=== PATIENT | female | born 1965 | race Two or more races ===

== ENCOUNTER → 2024-11-04 | Outpatient (CLI) | payer MEDICARE, MEDICAID, SELFPAY ==
--- NOTE | 2024-11-04 13:48 | XR_ITS ---
Examination: Venous duplex lower extremity sonogram, bilateral. Date and time of exam: November 04, 2024 1403 hours INDICATIONS: Bilateral ankle swelling and pain beginning one week ago Technique: Multiple sonographic images of the deep venous system have been obtained. B-mode/2-D grayscale imaging of vascular structures and Doppler spectral analysis (waveforms) and color performed Both legs are examined. Findings: Deep venous systems do not demonstrate abnormal echogenicity. All visualized deep veins exhibit compressibility. All visualized deep veins exhibit augmentation. Impression: Negative for deep vein thrombosis
== END | disposition home or self-care (01) ==
PROVIDERS: PCP Family Medicine; Referring Provider Student in an Organized Health Care Education/Training Program; Visit Provider Student in an Organized Health Care Education/Training Program
DX: R60.9 Edema, unspecified (principal)
CPT/HCPCS: 93970

== ENCOUNTER 2024-11-08 09:12 | Emergency (ER) | payer MEDICARE, SELFPAY ==
[2024-11-08 09:28] VITALS: BP 140/64; PULSE 89; RESP 18; TEMP 36.4; O2SAT 97; BMI 28.1
--- NOTE | 2024-11-08 09:47 | XR_ITS ---
Examination: Venous duplex lower extremity sonogram, bilateral. Date and time of exam: November 08, 2024 1102 hours INDICATIONS: Bilateral leg swelling and pain beginning 2 weeks ago Technique: Multiple sonographic images of the deep venous system have been obtained. B-mode/2-D grayscale imaging of vascular structures and Doppler spectral analysis (waveforms) and color performed Both legs are examined. Findings: Deep venous systems do not demonstrate abnormal echogenicity. All visualized deep veins exhibit compressibility. All visualized deep veins exhibit augmentation. Impression: Negative for deep vein thrombosis
--- NOTE | 2024-11-08 09:49 | PD.EDRME ---
Rapid Medical Screening Exam RME Arrival date/time: 11/08/24 09:12 This is a 59-year-old female that comes in with complaints of lower extremity pain along with edema. Patient states that she was seen by her primary provider previously and was given a Toradol shot for pain. Patient states that her leg pain is getting worse and the swelling was getting worse. Patient decided to come to the emergency room. Patient has a history of high blood pressure, chronic kidney disease, and anxiety. Patient has a history of seizures as well. I have greeted and performed a focused initial assessment of this patient. Initial appropriate labs ordered at this time. A comprehensive ED assessment and evaluation of the patient and analysis of all test and completion of medical decision making process will be conducted by additional ED provider. Chief Complaint: General Adult/Misc Complain Time Seen by Provider: 11/08/24 09:13 Vital signs: Vital Signs Temperature 97.6 F 11/08/24 09:28 Pulse Rate 89 11/08/24 09:28 Respiratory Rate 18 11/08/24 09:28 Blood Pressure 140/64 H 11/08/24 09:28 Pulse Oximetry (%) 97 11/08/24 09:28 Oxygen Delivery Method Room Air 11/08/24 09:28
[2024-11-08 10:12] LABS: Basophils # (Auto) 0.1 Thou/mm3 (0.0-0.2); Basophils % (Auto) 1 % (0-2.5); Eosinophils # (Auto) 0.3 Thou/mm3 (0.0-0.5); Eosinophils % (Auto) 4 % (0-10); Hematocrit 34.4 % (36.0-46.0); Hemoglobin 11.8 g/dL (12.0-16.0); Immature Granulocytes % (Auto) 0 % (0-0); Immature Granulocytes Auto 0.02 Thou/mm3 (0.00-0.00); Lymphocytes # (Auto) 1.7 Thou/mm3 (1.0-4.8); Lymphocytes % (Auto) 29 % (10-50); Mean Corpuscular HGB Conc 34.3 g/dl (31.0-37.0); Mean Corpuscular Hemoglobin 30.5 pg (25.0-35.0); Mean Corpuscular Volume 89 fL (80-100); Monocytes # (Auto) 0.6 Thou/mm3 (0.0-0.8); Monocytes % (Auto) 10 % (0-12); Neutrophils # (Auto) 3.2 Thou/mm3 (1.8-7.7); Neutrophils % (Auto) 55 % (37-80); Nucleated Red Blood Cell % 0 /100 WBC (0); Platelet Count 229 Thou/mm3 (140-440); RDW Standard Deviation 43.8 fL (36.4-46.3); Red Blood Count 3.87 Miln/mm3 (4.00-5.20); White Blood Count 5.9 Thou/mm3 (3.6-11.0)
[2024-11-08 10:28] LABS: Prothrombin Time 10.7 Seconds (9.0-12.2)
[2024-11-08 10:33] LABS: Collection Type, Urine Voided
[2024-11-08 10:33] LABS: B-Type Natriuretic Peptide 24 pg/mL (0-100)
[2024-11-08 10:34] LABS: Alanine Aminotransferase 33 U/L (10-49); Albumin, Serum 4.8 gm/dL (3.4-4.8); Albumin/Globulin Ratio 1.7 (1.2-2.2); Alkaline Phosphatase 95 U/L (46-116); Anion Gap 14 (7-16); Aspartate Amino Transferase 42 U/L (0-34); BUN/Creatinine Ratio 15 Ratio (12-20); Bilirubin,Total 0.4 mg/dL (0.3-1.2); Blood Urea Nitrogen 16 mg/dL (9-23); Calcium 8.9 mg/dL (8.3-10.6); Calcium (Corrected) 8.9 mg/dL (8.5-10.1); Chloride 107 mMol/L (98-107); Creatinine (Component) 1.1 mg/dL (0.6-1.3); Estimated Creatinine Clearance 43.4 mL/min (>60); Globulin 2.9 gm/dL (2.3-3.5); Glucose 101 mg/dL (74-106); Osmolality,Calculated 284 (275-295); Potassium 4.2 mMol/L (3.4-5.1); Sodium 142 mMol/L (136-145); Total Protein 7.7 gm/dL (5.7-8.2); eGFR 57 See Note
[2024-11-08 11:20] LABS: Bilirubin,Urine Negative (Negative); Blood,Urine 1+ (Negative); Color,Urine Lt-Yellow (Lt Yel-Yel); Glucose, Urine Negative (Negative); Hyaline Casts,Urine < 1 /hpf (0-1); Ketones,Urine Negative (Negative); Leukocyte Esterase,Urine Positive (Negative); Nitrite,Urine Negative (Negative); PH,Urine 5.5 (5.0-7.0); Protein,Urine Negative (Neg - Trace); RBC,Urine 7 /hpf (0-3); Specific Gravity,Urine 1.021 (1.001-1.035); Squamous Epithelial Cell,Urine 6 /hpf (0-5); Urobilinogen,Urine Negative mg/dL (0.0-1.0); WBC,Urine 11 /hpf (0-5)
[2024-11-08 11:50] LABS: Clarity,Urine Hazy (Clear/Hazy); Culture Indicated,Urine Yes
[2024-11-08 13:05] VITALS: BP 109/76; PULSE 88; RESP 20; TEMP 36.3; O2SAT 98
--- NOTE | 2024-11-08 13:52 | EDNOTE_ITS ---
<Statement entered by Demi Villeda MD - 11/09/24 09:01> As co-signing physician, I was present and available for consult prn. I concur with the plan and care as documented by the midlevel provider. ED General RME/HPI General Chief complaint: General Adult/Misc Complain Stated complaint: SWOLLEN FEET Time Seen by Provider: 11/08/24 09:13 Arrival date/time: 11/08/24 09:12 Bilateral lower extremity edema. Ongoing approximately 2 weeks. Patient denies shortness of breath difficulty breathing headache or chest pain. RME / HPI RME / HPI narrative: 11/08/24 09:12 This is a 59-year-old female that comes in with complaints of lower extremity pain along with edema. Patient states that she was seen by her primary provider previously and was given a Toradol shot for pain. Patient states that her leg pain is getting worse and the swelling was getting worse. Patient decided to come to the emergency room. Patient has a history of high blood pressure, chronic kidney disease, and anxiety. Patient has a history of seizures as well. I have greeted and performed a focused initial assessment of this patient. Initial appropriate labs ordered at this time. A comprehensive ED assessment and evaluation of the patient and analysis of all test and completion of medical decision making process will be conducted by additional ED provider. Related Data Home Medications ?Medication ?Instructions ?Recorded ?Confirmed benazepril 5 mg tablet 15 mg PO QDAY 02/21/1802/16 buspirone 15 mg tablet 15 mg PO QDAY 11/09/1802/16 phenytoin sodium extended 100 mg 100 mg PO TID 9 02/16/19 capsule (Dilantin Extended) Previous Rx's ?Medication ?Instructions ?Recorded furosemide 20 mg tablet (Lasix) 20 mg PO QAM #3 tabs 0 11/08/24 Allergies Allergy/AdvReac Type Severity Reaction Status Date / Time clindamycin Allergy Severe HIVES Verified 11/08/24 09:14 prednisone Allergy Severe Hives Verified 11/08/24 09:14 aspirin AdvReac Severe VOMITING Verified 11/08/24 09:14 Penicillins AdvReac Severe Vomiting Verified 11/08/24 09:14 Review of Systems Review of Systems Narrative Review of Systems: GEN: No fever, no chills, no weight loss EYES: No discharge, no visual changes, no pain HEENT: No ear pain, no congestion, no sore throat PULM: No shortness of breath, no cough, no congestion CV: No chest pain, no dyspnea on exertion, no palpitations GI: No nausea, no vomiting, no diarrhea, no pain, no constipation : No frequency, no urgency, no dysuria MUSC/SKEL: No joint pain, no back pain SKIN: No rash PSYCH: No hallucinations, no depression HEME/LYMPH: No easy bleeding or bruising tendencies NEURO: No weakness, no headache Past Medical History Past Medical History NEUROLOGIC: Positive Transient Ischemic Attacks (TIA) and Seizures CARDIAC: Positive Cardiac Disorders and Hypertension; Negative Congestive Heart Failure RESPIRATORY: Negative Chronic Obstructive Pulmonary Disease (COPD) or Asthma GENITOURINARY: Positive Renal Disease ENDOCRINE: Negative Diabetes Mellitus Type 1 or Diabetes Mellitus Type 2 HEMATOLOGIC: Negative Sickle Cell Disease OTHER HISTORY: Positive Falls Social History SMOKING STATUS: Never smoker ED Exam Narrative Physical exam: [General: Obese not in cot no acute distress Head normocephalic HEENT: Within acceptable limits Neck is supple nontender Chest equal chest rise nontender to palpation Respiratory: Clear to auscultation no wheezes crackles or rubs CV: Rate rhythm is regular no murmurs rubs or clicks Abdomen is distended secondary to body habitus soft nontender no masses positive bowel sounds all 4 quadrants Back: No CVA tenderness no spinous process tenderness from cervical spine thoracic and lumbar spine Skin: Intact no petechiae rash induration ulceration or crepitus Extremities: Moving all extremity against resistance cap refill less than 2 seconds neurosensory intact. Mild pitting edema to the lower extremities below the knee down to the dorsum of the foot. Neuro: Awake alert oriented x3 Glascow coma 15 no focal deficits] Course Quality Measures none Orders Category Date Time Status US venous doppler LE BI Stat Exams 11/08/24 09:47 Completed BNP [B-Type Natriuretic Peptide] Stat Lab 11/08/24 09:55 Completed CBC Stat Lab 11/08/24 09:55 Completed Comprehensive Metabolic Panel Stat Lab 11/08/24 09:55 Completed PT [Prothrombin Time with INR] Stat Lab 11/08/24 09:55 Completed Urinalysis, C/S if Indicated Stat Lab 11/08/24 10:22 Completed Urine Culture Stat Lab 11/08/24 10:22 Received Furosemide [Lasix] Med 11/08/24 13:52 Once 20 mg PO X1 ONE Vital Signs Vital signs: Vital Signs Temperature 97.6 F 11/08/24 09:28 Pulse Rate 89 11/08/24 09:28 Respiratory Rate 18 11/08/24 09:28 Blood Pressure 140/64 H 11/08/24 09:28 Pulse Oximetry (%) 97 11/08/24 09:28 Oxygen Delivery Method Room Air 11/08/24 09:28 Discharge Plan Plan Patient Disposition: HOME (Self Care) Patient condition on transfer: Stable Prescriptions/Referrals Prescriptions/Med Rec: New furosemide [Lasix] 20 mg tablet 20 mg PO QAM Qty: 3 0RF No Action benazepril 5 mg Tablet 15 mg PO QDAY phenytoin sodium extended [Dilantin Extended] 100 mg Capsule 100 mg PO TID buspirone 15 mg Tablet 15 mg PO QDAY Referrals: Billy Duong MD [Physician] - In 1 week No Primary/Family,Physician [Primary Care Provider] - In 1 week Problem List Clinical Impression: Edema of lower extremity Patient/Caregiver Discharge Instructions Education Materials: ED Leg Swelling in Both Legs Additional Instructions: Take the medication as prescribed and follow-up with your primary care provider. Print Language: French Stand Alone Forms: Elisabeth Award Info., Patient Portal Info Letter, Work/School Release PA/DOUG Supervising Physician PA/DOUG Supervising Physician: Yahir Cota ENP [facility] Clinical Information Provided by: patient Medical Records reviewed [facility] Meds/Rx considered, not ordered None Labs/Rad/Tests considered, not ordered None EKG EKG not done Labs Labs: Interpreted by id Lab(s) Interpretation(s): CBC shows no acute leukocytosis mild anemia of 11.8 and 34.4 respectively. No thrombocytopenia CMP shows no significant electrolyte imbalances renal impairment transaminitis or T. bili elevation Urine is negative Medication Administration(s) Medication Administration History Furosemide (Furosemide 20 Mg Tablet) 20 mg PO X1 ONE Stop: 11/08/24 13:53
[2024-11-08 14:08] VITALS: BP 133/77; PULSE 73
[2024-11-08] MEDS: Furosemide 20 MG TABLET PO (14:08)
[2024-11-08 14:12] VITALS: BP 133/77; PULSE 73; RESP 18
== END 2024-11-08 14:10 | disposition home or self-care (01) ==
PROVIDERS: Nurse Practitioner Family; Emergency Provider Emergency Medicine
DX: R60.0 Localized edema (principal); N18.9 Chronic kidney disease, unspecified; F41.9 Anxiety disorder, unspecified
CPT/HCPCS: 36415; 80053; 81001; 83880; 85025; 85610; 87086; 93970; 99284; A9270

== ENCOUNTER → 2024-12-05 | Outpatient (CLI) | payer MEDICARE, MEDICAID, SELFPAY ==
--- NOTE | 2024-12-05 09:11 | XR_ITS ---
Examination: PA lateral chest 2 views TECHNIQUE: Upright PA lateral chest 2 views Date and time: December 05, 2024 0926 hours INDICATIONS: Coughing shortness of breath beginning 2 weeks ago. FINDINGS: Normal heart size Lungs are clear. The osseous structures are intact IMPRESSION: No active disease
[2024-12-05 10:19] LABS: Basophils # (Auto) 0.1 Thou/mm3 (0.0-0.2); Basophils % (Auto) 1 % (0-2.5); Eosinophils # (Auto) 0.4 Thou/mm3 (0.0-0.5); Eosinophils % (Auto) 6 % (0-10); Hematocrit 36.4 % (36.0-46.0); Hemoglobin 11.8 g/dL (12.0-16.0); Immature Granulocytes % (Auto) 0 % (0-0); Immature Granulocytes Auto 0.02 Thou/mm3 (0.00-0.00); Lymphocytes # (Auto) 1.9 Thou/mm3 (1.0-4.8); Lymphocytes % (Auto) 33 % (10-50); Mean Corpuscular HGB Conc 32.4 g/dl (31.0-37.0); Mean Corpuscular Hemoglobin 29.7 pg (25.0-35.0); Mean Corpuscular Volume 92 fL (80-100); Monocytes # (Auto) 0.6 Thou/mm3 (0.0-0.8); Monocytes % (Auto) 10 % (0-12); Neutrophils # (Auto) 2.8 Thou/mm3 (1.8-7.7); Neutrophils % (Auto) 49 % (37-80); Nucleated Red Blood Cell % 0 /100 WBC (0); Platelet Count 266 Thou/mm3 (140-440); RDW Standard Deviation 45.1 fL (36.4-46.3); Red Blood Count 3.97 Miln/mm3 (4.00-5.20); White Blood Count 5.7 Thou/mm3 (3.6-11.0)
[2024-12-05 10:34] LABS: B-Type Natriuretic Peptide < 20 pg/mL (0-100)
[2024-12-05 10:37] LABS: Alanine Aminotransferase 23 U/L (10-49); Albumin, Serum 4.6 gm/dL (3.4-4.8); Albumin/Globulin Ratio 1.8 (1.2-2.2); Alkaline Phosphatase 99 U/L (46-116); Anion Gap 11 (7-16); BUN/Creatinine Ratio 21 Ratio (12-20); Bilirubin,Total 0.3 mg/dL (0.3-1.2); Blood Urea Nitrogen 27 mg/dL (9-23); Calcium 9.3 mg/dL (8.3-10.6); Calcium (Corrected) 9.3 mg/dL (8.5-10.1); Carbon Dioxide 27.5 mMol/L (20.0-31.0); Chloride 100 mMol/L (98-107); Creatinine (Component) 1.3 mg/dL (0.6-1.3); Globulin 2.5 gm/dL (2.3-3.5); Glucose 100 mg/dL (74-106); Osmolality,Calculated 280 (275-295); Potassium 4.1 mMol/L (3.4-5.1); Sodium 138 mMol/L (136-145); Total Protein 7.1 gm/dL (5.7-8.2); eGFR 47 See Note
== END | disposition home or self-care (01) ==
LOC: CDIM 09:05 → COPL 09:41
PROVIDERS: PCP Student in an Organized Health Care Education/Training Program; Referring Provider Student in an Organized Health Care Education/Training Program; Visit Provider Radiology Diagnostic Radiology
DX: R06.02 Shortness of breath (principal); N18.9 Chronic kidney disease, unspecified
CPT/HCPCS: 36415; 71046; 80053; 83880; 85025

== ENCOUNTER → 2025-02-07 | Outpatient (CLI) | payer MEDICARE, MEDICAID, SELFPAY ==
--- NOTE | 2025-02-07 09:44 | XR_ITS ---
Examination: Foot, left, 3 views Technique: AP, oblique, lateral views foot, 3 views Date and time of exam: February 07, 2025 1041 hours INDICATIONS: Injury to left foot February 03, 2025 with foot pain FINDINGS: Moderate osteopenia No acute fracture Mild bunion deformity IMPRESSION: No acute fracture
== END | disposition home or self-care (01) ==
LOC: CDIM 09:13
PROVIDERS: PCP Student in an Organized Health Care Education/Training Program; Referring Provider Student in an Organized Health Care Education/Training Program; Visit Provider Student in an Organized Health Care Education/Training Program
DX: S99.922A Unspecified injury of left foot, initial encounter (principal); X58.XXXA Exposure to other specified factors, initial encounter
CPT/HCPCS: 73630

== ENCOUNTER → 2025-03-09 | Outpatient (CLI) | payer MEDICARE, MEDICAID, SELFPAY ==
--- NOTE | 2025-03-09 09:19 | XR_ITS ---
Examination: Foot, right, 3 views Technique: AP, oblique, lateral views foot, 3 views Date and time of exam: June 08, 2025 0952 hours INDICATIONS: Right flank pain beginning 2 weeks ago. FINDINGS: No acute fracture No dislocation No foreign body No cortical bone destruction IMPRESSION: No fracture. No cortical bone destruction
[2025-03-09 11:10] LABS: Basophils # (Auto) 0.1 Thou/mm3 (0.0-0.2); Basophils % (Auto) 1 % (0-2.5); Eosinophils # (Auto) 0.3 Thou/mm3 (0.0-0.5); Eosinophils % (Auto) 7 % (0-10); Hematocrit 35.7 % (36.0-46.0); Hemoglobin 11.7 g/dL (12.0-16.0); Immature Granulocytes Auto 0.01 Thou/mm3 (0.00-0.00); Lymphocytes # (Auto) 1.6 Thou/mm3 (1.0-4.8); Lymphocytes % (Auto) 34 % (10-50); Mean Corpuscular HGB Conc 32.8 g/dl (31.0-37.0); Mean Corpuscular Hemoglobin 29.8 pg (25.0-35.0); Mean Corpuscular Volume 91 fL (80-100); Monocytes # (Auto) 0.5 Thou/mm3 (0.0-0.8); Monocytes % (Auto) 12 % (0-12); Neutrophils # (Auto) 2.2 Thou/mm3 (1.8-7.7); Neutrophils % (Auto) 47 % (37-80); Nucleated Red Blood Cell # 0.00 Thou/mm3 (0.00-0.00); Nucleated Red Blood Cell % 0 /100 WBC (0); Platelet Count 184 Thou/mm3 (140-440); RDW Standard Deviation 49.1 fL (36.4-46.3); Red Blood Count 3.93 Miln/mm3 (4.00-5.20); White Blood Count 4.7 Thou/mm3 (3.6-11.0)
[2025-03-09 11:24] LABS: Glucose Estimated Average 120 mg/dL (80-131); Hemoglobin A1C 5.8 % Hgb (4.8-6.0)
[2025-03-09 11:27] LABS: Alanine Aminotransferase 14 U/L (10-49); Albumin, Serum 4.7 gm/dL (3.4-4.8); Albumin/Globulin Ratio 2.0 (1.2-2.2); Alkaline Phosphatase 122 U/L (46-116); Anion Gap 9 (7-16); Aspartate Amino Transferase 20 U/L (0-34); BUN/Creatinine Ratio 19 Ratio (12-20); Bilirubin,Total 0.3 mg/dL (0.3-1.2); Blood Urea Nitrogen 21 mg/dL (9-23); Calcium 9.8 mg/dL (8.3-10.6); Calcium (Corrected) 9.8 mg/dL (8.5-10.1); Carbon Dioxide 29.4 mMol/L (20.0-31.0); Cardiac Risk Estimate 2.3 RATIO (3.7-5.6); Chloride 105 mMol/L (98-107); Cholesterol 202 mg/dL (132-200); Creatinine (Component) 1.1 mg/dL (0.6-1.3); Globulin 2.3 gm/dL (2.3-3.5); Glucose 99 mg/dL (74-106); HDL Cholesterol 86 mg/dL (40-60); LDL Cholesterol,Calculated 100 mg/dL (0-130); Osmolality,Calculated 287 (275-295); Potassium 4.4 mMol/L (3.4-5.1); Sed Rate (ESR) 13 mm/hr (0-30); Sodium 143 mMol/L (136-145); Total Protein 7.0 gm/dL (5.7-8.2); Triglycerides 82 mg/dL (30-150); Uric Acid 7.4 mg/dL (3.1-7.8); eGFR 57 See Note
[2025-03-09 11:38] LABS: Creatinine MALB Rnd Ur 36 mg/dL (30-125); Microalbumin, Random Urine < 3 mg/L (0-300)
[2025-03-09 17:43] LABS: Vitamin D 25 Hydroxy Total 23.3 ng/mL (7.3-40.2)
== END | disposition home or self-care (01) ==
LOC: CDIM 09:01 → COPL 09:43
PROVIDERS: PCP Nurse Practitioner Family; Referring Provider Nurse Practitioner Family; Visit Provider Radiology Diagnostic Radiology
DX: M79.671 Pain in right foot (principal); N18.9 Chronic kidney disease, unspecified; M79.672 Pain in left foot
CPT/HCPCS: 36415; 73630; 80053; 80061; 82043; 82306; 82570; 83036; 84550; 85025; 85652

== ENCOUNTER → 2025-04-12 | Outpatient (CLI) | payer MEDICARE, SELFPAY ==
--- NOTE | 2025-04-12 13:49 | XR_ITS ---
EXAMINATION: AP pelvis left hip 3 views TECHNIQUE: AP pelvis, AP lateral left hip 2 views total 3 views Date and time: April 12, 2025, 1411 hours INDICATIONS: Left hip pain 1 month FINDINGS: Total left hip arthroplasty. The prosthetic acetabular cup protrudes medially into the pelvis stable in appearance compared with November 05, 2023 The intramedullary stem of the hip prosthesis is eccentrically positioned extending slightly into the cortex of the left femoral shaft No fracture IMPRESSION: Stable alignment left total hip arthroplasty, the prosthetic stem is eccentrically positioned relative to the femoral shaft although no fracture
--- NOTE | 2025-04-12 13:49 | XR_ITS ---
EXAMINATION: Left foot 3 views TECHNIQUE: AP oblique lateral left foot 3 views Date and time: April 12, 2025 1407 hours INDICATIONS: Left foot pain beginning 1 month ago. FINDINGS: Mild bunion deformity. Mild narrowing first metatarsophalangeal joint No fracture. No erosive or other significant arthritic change IMPRESSION: Mild bunion deformity Mild narrowing first metatarsophalangeal joint
== END | disposition home or self-care (01) ==
PROVIDERS: PCP Internal Medicine
DX: M21.612 Bunion of left foot (principal); M25.872 Other specified joint disorders, left ankle and foot; M25.552 Pain in left hip; Z96.642 Presence of left artificial hip joint
CPT/HCPCS: 73502; 73630

== ENCOUNTER → 2025-05-10 | Outpatient (CLI) | payer MEDICARE, SELFPAY ==
[2025-05-10 09:15] LABS: Basophils # (Auto) 0.1 Thou/mm3 (0.0-0.2); Basophils % (Auto) 1 % (0-2.5); Eosinophils # (Auto) 0.2 Thou/mm3 (0.0-0.5); Eosinophils % (Auto) 4 % (0-10); Hematocrit 37.5 % (36.0-46.0); Hemoglobin 12.3 g/dL (12.0-16.0); Immature Granulocytes Auto 0.02 Thou/mm3 (0.00-0.00); Lymphocytes # (Auto) 1.5 Thou/mm3 (1.0-4.8); Lymphocytes % (Auto) 35 % (10-50); Mean Corpuscular HGB Conc 32.8 g/dl (31.0-37.0); Mean Corpuscular Hemoglobin 30.4 pg (25.0-35.0); Mean Corpuscular Volume 93 fL (80-100); Monocytes # (Auto) 0.5 Thou/mm3 (0.0-0.8); Monocytes % (Auto) 12 % (0-12); Neutrophils # (Auto) 2.1 Thou/mm3 (1.8-7.7); Neutrophils % (Auto) 48 % (37-80); Nucleated Red Blood Cell # 0.00 Thou/mm3 (0.00-0.00); Nucleated Red Blood Cell % 0 /100 WBC (0); Platelet Count 194 Thou/mm3 (140-440); RDW Standard Deviation 46.0 fL (36.4-46.3); Red Blood Count 4.05 Miln/mm3 (4.00-5.20); White Blood Count 4.4 Thou/mm3 (3.6-11.0)
[2025-05-10 09:37] LABS: Glucose Estimated Average 114 mg/dL (80-131); Hemoglobin A1C 5.6 % Hgb (4.8-6.0)
[2025-05-10 09:40] LABS: Alanine Aminotransferase 15 U/L (10-49); Albumin, Serum 4.9 gm/dL (3.4-4.8); Albumin/Globulin Ratio 2.2 (1.2-2.2); Alkaline Phosphatase 94 U/L (46-116); Anion Gap 9 (7-16); Aspartate Amino Transferase 24 U/L (0-34); BUN/Creatinine Ratio 19 Ratio (12-20); Bilirubin,Total 0.4 mg/dL (0.3-1.2); Blood Urea Nitrogen 21 mg/dL (9-23); Calcium 9.2 mg/dL (8.3-10.6); Calcium (Corrected) 9.2 mg/dL (8.5-10.1); Carbon Dioxide 28.9 mMol/L (20.0-31.0); Cardiac Risk Estimate 2.5 RATIO (3.7-5.6); Chloride 105 mMol/L (98-107); Cholesterol 218 mg/dL (132-200); Creatinine (Component) 1.1 mg/dL (0.6-1.3); Globulin 2.2 gm/dL (2.3-3.5); Glucose 98 mg/dL (74-106); HDL Cholesterol 88 mg/dL (40-60); LDL Cholesterol,Calculated 123 mg/dL (0-130); Osmolality,Calculated 287 (275-295); Potassium 4.3 mMol/L (3.4-5.1); Sodium 143 mMol/L (136-145); Thyroid Stimulating Hormone 3.37 uIU/mL (0.55-4.78); Total Protein 7.1 gm/dL (5.7-8.2); Triglycerides 37 mg/dL (30-150); eGFR 57 See Note
[2025-05-10 09:42] LABS: Vitamin D 25 Hydroxy Total 23.8 ng/mL (7.3-40.2)
== END | disposition home or self-care (01) ==
DX: I10 Essential (primary) hypertension (principal); R53.83 Other fatigue; Z13.6 Encounter for screening for cardiovascular disorders; Z79.899 Other long term (current) drug therapy
CPT/HCPCS: 36415; 80053; 80061; 82306; 83036; 84443; 85025